=== PATIENT | male | born 1960 | race Caucasian/White ===

== ENCOUNTER → 2019-05-17 | Outpatient (CLI) | payer OTHER ==
[~2019-05-17] MED LIST: AMOXICILLIN 50500 MG; ATENOLOL PO; AUGMENTIN 500-1 EACH PO; CIPRODEX OTIC7.5 ML OTIC; DOXYCYCLINE 10100 MG PO; HYDROCODON-ACE1 EAC7 PO; NORCO 5-325 TA1 EACH PO; OXYIR5 MG PO; PAXIL; PREDNISONE50 MG PO; PREVACID; VICODIN 5-5001 EACH PO
== END ==
LOC: M.CT 10:39
DX: Z13.6 Encounter for screening for cardiovascular disorders (principal); I25.10 Atherosclerotic heart disease of native coronary artery without angina pectoris; E78.00 Pure hypercholesterolemia, unspecified

== ENCOUNTER → 2019-08-30 | Outpatient (CLI) | payer OTHER | LOC: M.MRI 14:30 | DX: M47.22 Other spondylosis with radiculopathy, cervical region (principal); M50.121 Cervical disc disorder at C4-C5 level with radiculopathy; M48.02 Spinal stenosis, cervical region; M25.78 Osteophyte, vertebrae ==

== ENCOUNTER → 2019-09-20 | Outpatient (CLI) | payer OTHER ==
[~2019-09-20] MED LIST changes: +MELOXICAM15 MG PO; +TIZANIDINE HCL 22 M1 PO
== END ==
LOC: M.PC 03:39
PROVIDERS: ATTEND Physical Medicine & Rehabilitation
DX: M50.31 Other cervical disc degeneration, high cervical region (principal); M47.812 Spondylosis without myelopathy or radiculopathy, cervical region; M48.02 Spinal stenosis, cervical region